=== PATIENT | male | born 1995 | race Caucasian/White ===

== ENCOUNTER 2016-10-17 12:51 | Emergency (ER) | payer OTHER ==
[2016-10-17] MEDS ORDERED: TETRACAINE 0.5% OPHTH SOLN 4ML As Ordered ONE (15:03)
[2016-10-17] MEDS ORDERED: DERMABOND TOPICAL SKIN ADHESIVE As Ordered ONE (15:04)
[2016-10-17] MEDS ORDERED: FLUORESCEIN OPHTH 1 MG STRIP As Ordered ONE (15:04)
--- NOTE | 2016-10-17 15:35 | EDDOCDS ---
Nurse's Notes [facility] Name: Harrison Edmonds Age: 21 yrs Sex: Male : 1995 Arrival Date: 10/17/2016 Time: 12:51 Bed TR8 Private MD: Other - Complete Info On Cds Diagnosis: Laceration without foreign body of left eyelid and periocular area-lower Presentation: 10/17 13:13 Presenting complaint: Patient states: scratches around left eye after scratched by own [facility] dog, medic told him to come in and get it checked out, denies any visual disturbance. Mechanism of Injury: dog scratch. The patient denies any loss of vision. Adult Sepsis Screening: The patient does not have new or worsening altered mentation. Patient's respiratory rate is less than 22. Systolic blood pressure is greater than 100. Patient has a qSOFA score of 0- Negative Sepsis Screen. Suicide/Homicide risk assessment- the patient denies having any suicidal and/or homicidal ideations and does not present with any other emotional, behavioral or mental health complaints. Status: The patient is an active duty hvac service manager. Transition of care: patient was not received from another setting of care. 13:13 Acuity: PUJA Level 4 [facility] 13:13 Method Of Arrival: Walkin/Carried/Asstd [facility] Triage Assessment: 13:16 General: Appears in no apparent distress. Pain: Location: left eye Pain currently is 5 cjh out of 10 on a pain scale. HIV screening NA for this visit Offered previously. EENT: Reports pain around left eye. Respiratory: Airway is patent Respiratory effort is even, unlabored, Respiratory pattern is regular, symmetrical. Derm: Skin is pink, warm & dry. Historical: - Allergies: no known allergies; - Home Meds: 1. none - PMHx: none; - PSHx: Ear Tubes; - Social history: Smoking status: Chewing Tobacco No barriers to communication noted. - Family history: Not pertinent. - : The pt / caregiver states he / she is not on anticoagulants. Home medication list is obtained from the patient. - Exposure Risk Screening:: None identified. Screenin:24 Screening information is obtained from the patient. Fall risk: No risks identified. kr3 Assistance ADL's: requires no assistance with activities of daily living. Abuse/DV Screen: The patient / caregiver reports he/she is: not in a situation that causes fear, pain or injury. Nutritional screening: No deficits noted. Advance Directives: Currently, there is no health care proxy. home support is adequate. Assessment: 15:23 General: Appears in no apparent distress, comfortable, Behavior is appropriate for age, kr3 cooperative. Pain: Location: left eye Pain currently is 5 out of 10 on a pain scale. Neurological: Level of Consciousness is awake, alert. Respiratory: Respiratory effort is even, unlabored. Derm: Skin is normal. Injury Description: Laceration sustained to lateral canthus of left eye is superficial, is bleeding no active bleeding noted. Vital Signs: 12:53 BP 111 / 53 RA Sitting (auto/reg); Pulse 55 RA; Resp 18 S; Temp 97.7(O); Pulse Ox 100% mt4 on R/A; Weight 74.84 kg (R); Height 6 ft. 2 in. (187.96 cm) (R); Pain 6/10; 15:22 BP 134 / 72; Pulse 106; Resp 16; Pulse Ox 100% on R/A; Pain 5/10; kr3 12:53 Body Mass Index 21.18 (74.84 kg, 187.96 cm) mt4 Vitals: 12:53 Log In Time: October 17, 2016 at 12:51. mt4 Visual Acuity: 15:22 ; not done kr3 15:28 Left Eye Visual acuity 20/15, ; Right Eye Visual acuity 20/15, ; Without Lenses; kr3 ED Course: 12:53 Patient visited by Ebony Michelle. mt4 12:53 Other - Complete Info On Cds is Private Physician. mt4 12:53 Patient moved to Waiting mt4 12:55 Patient moved to Pre RCE mt4 13:15 Triage Initiated [facility] 14:38 Patient moved to Triage 3 jf3 15:02 [facility] ar2 15:02 Evelio Sheth MD is Attending Physician. ar2 15:02 Patient visited by Andrew Emerson PA-C. ar2 15:19 Pete [facility] [place] [place] is Referral Physician. ar2 15:24 No IV's were initiated during this patient's visit. No procedures done that require kr3 assistance. 15:25 The patient / caregiver is instructed regarding the plan of care and ED course. Patient kr3 has correct armband on for positive identification. 15:28 [facility] Payment Agreement was scanned into [employer] and attached to record. gjb 15:31 Patient moved to [address] 15:32 Patient name changed from Harrison\S\D\S\Grey\S\ to Harrison\S\ \S\Grey. EDMS Administered Medications: 15:05 Drug: Fluorescein 1 strips [fluorescein 1 mg eye strips (1 strips)] {Note: by carter REYES} Route: Ophthalmic; Site: left eye; 15:06 Drug: Tetracaine (PF) 2 drps [tetracaine HCl (PF) 0.5 % eye drops (2 drps)] {Note: by carter REYES} Route: Ophthalmic; Site: left eye; Order Results: There are currently no results for this order. Outcome: 15:20 Discharge ordered by Provider. ar2 15:24 No special radiology studies were completed. Property sent home with patient. kr3 15:30 Discharge Assessment: patient administered narcotics - no. The following High Risk [facility] Discharge criteria are identified: None. Discharged to home ambulatory. Condition: stable. Discharge instructions given to patient, Instructed on discharge instructions, follow up and referral plans. medication usage, wound care, Demonstrated understanding of instructions, medications, Pt was receptive of discharge instructions/ teaching. Prescriptions given X 1. 15:35 Patient left the ED. kr3 Signatures: Dispatcher [employer] EDMS Josiane Wills,LOYD RN kr3 Andrew Emerson, PA-C PA-C ar2 Ebony Michelle ct4 Margot Bautista RN RN [facility] Kelly Rhodes Justin,LOYD RN jojo3 Kacie Lara MTDD
--- NOTE | 2016-10-17 15:35 | EDDOCDS ---
Physician Documentation [facility] Name: Harrison Edmonds Age: 21 yrs Sex: Male : 1995 Arrival Date: 10/17/2016 Time: 12:51 Bed TR8 Private MD: Other - Complete Info On Cds Disposition: 10/17/16 15:20 Discharged to Home/Self Care. Impression: Laceration without foreign body of left eyelid and periocular area - lower. - Condition is Stable. - Discharge Instructions: Tissue Adhesive Wound Care. - Prescriptions for Augmentin 875- 125 mg Oral Tablet - take 1 tablet by ORAL route every 12 hours for 10 days; 20 tablet. - Medication Reconciliation, Local Pharmacy Hours form. - Follow up: [facility]; When: 2 - 3 days; Reason: Wound/Symptom Recheck. Follow up: Emergency Department; When: As needed; Reason: Worsening of conditions. - Problem is new. - Symptoms have improved. Historical: - Allergies: no known allergies; - Home Meds: 1. none - PMHx: none; - PSHx: Ear Tubes; - Social history: Smoking status: Chewing Tobacco No barriers to communication noted. - Family history: Not pertinent. - : The pt / caregiver states he / she is not on anticoagulants. Home medication list is obtained from the patient. - Exposure Risk Screening:: None identified. Vital Signs: 10/17 12:53 BP 111 / 53 RA Sitting (auto/reg); Pulse 55 RA; Resp 18 S; Temp 97.7(O); Pulse Ox 100% mt4 on R/A; Weight 74.84 kg / 164.99 lbs (R); Height 6 ft. 2 in. (187.96 cm) (R); Pain 6/10; 15:22 BP 134 / 72; Pulse 106; Resp 16; Pulse Ox 100% on R/A; Pain 5/10; kr3 12:53 Body Mass Index 21.18 (74.84 kg, 187.96 cm) mt4 Visual Acuity: 15:22 ; not done kr3 15:28 Left Eye Visual acuity 20/15, ; Right Eye Visual acuity 20/15, ; Without Lenses; kr3 MDM: 14:59 Tetracaine (PF) Drops 0.5 % 2 drps Ophthalmic once; apply to affected eye ordered. ar2 15:04 Dermabond to bedside ordered. ar2 15:04 Fluorescein Strip 1 strips Ophthalmic once ordered. ar2 15:25 Visual Acuity ordered. ar2 15:28 [facility] Payment Agreement was scanned into [employer] and attached to record. cherri 15:28 Financial registration complete. cherri Administered Medications: 15:05 Drug: Fluorescein 1 strips [fluorescein 1 mg eye strips (1 strips)] {Note: by carter REYES} Route: Ophthalmic; Site: left eye; 15:06 Drug: Tetracaine (PF) 2 drps [tetracaine HCl (PF) 0.5 % eye drops (2 drps)] {Note: by carter REYES} Route: Ophthalmic; Site: left eye; Signatures: Josiane Wills RN RN kr3 Andrew Emerson PA-C PAElvia ar2 Margot Bautista RN RN cj Kacie Lara The chart was reviewed and I authenticate all verbal orders and agree with the evaluation and treatment provided.Attachments: 15:28 [facility] Payment Agreement nat MTDD
--- NOTE | 2016-10-19 16:35 | EDDOCDS ---
Nurse's Notes [facility] Name: Harrison Edmonds Age: 21 yrs Sex: Male : 1995 Arrival Date: 10/17/2016 Time: 12:51 Bed TR8 Private MD: Other - Complete Info On Cds Diagnosis: Laceration without foreign body of left eyelid and periocular area-lower Presentation: 10/17 13:13 Presenting complaint: Patient states: scratches around left eye after scratched by own [facility] dog, medic told him to come in and get it checked out, denies any visual disturbance. Mechanism of Injury: dog scratch. The patient denies any loss of vision. Adult Sepsis Screening: The patient does not have new or worsening altered mentation. Patient's respiratory rate is less than 22. Systolic blood pressure is greater than 100. Patient has a qSOFA score of 0- Negative Sepsis Screen. Suicide/Homicide risk assessment- the patient denies having any suicidal and/or homicidal ideations and does not present with any other emotional, behavioral or mental health complaints. Status: The patient is an active duty human service technician. Transition of care: patient was not received from another setting of care. 13:13 Acuity: PUJA Level 4 [facility] 13:13 Method Of Arrival: Walkin/Carried/Asstd [facility] Triage Assessment: 13:16 General: Appears in no apparent distress. Pain: Location: left eye Pain currently is 5 cjh out of 10 on a pain scale. HIV screening NA for this visit Offered previously. EENT: Reports pain around left eye. Respiratory: Airway is patent Respiratory effort is even, unlabored, Respiratory pattern is regular, symmetrical. Derm: Skin is pink, warm & dry. Historical: - Allergies: no known allergies; - Home Meds: 1. none - PMHx: none; - PSHx: Ear Tubes; - Social history: Smoking status: Chewing Tobacco No barriers to communication noted. - Family history: Not pertinent. - : The pt / caregiver states he / she is not on anticoagulants. Home medication list is obtained from the patient. - Exposure Risk Screening:: None identified. Screenin:24 Screening information is obtained from the patient. Fall risk: No risks identified. kr3 Assistance ADL's: requires no assistance with activities of daily living. Abuse/DV Screen: The patient / caregiver reports he/she is: not in a situation that causes fear, pain or injury. Nutritional screening: No deficits noted. Advance Directives: Currently, there is no health care proxy. home support is adequate. Assessment: 15:23 General: Appears in no apparent distress, comfortable, Behavior is appropriate for age, kr3 cooperative. Pain: Location: left eye Pain currently is 5 out of 10 on a pain scale. Neurological: Level of Consciousness is awake, alert. Respiratory: Respiratory effort is even, unlabored. Derm: Skin is normal. Injury Description: Laceration sustained to lateral canthus of left eye is superficial, is bleeding no active bleeding noted. Vital Signs: 12:53 BP 111 / 53 RA Sitting (auto/reg); Pulse 55 RA; Resp 18 S; Temp 97.7(O); Pulse Ox 100% mt4 on R/A; Weight 74.84 kg (R); Height 6 ft. 2 in. (187.96 cm) (R); Pain 6/10; 15:22 BP 134 / 72; Pulse 106; Resp 16; Pulse Ox 100% on R/A; Pain 5/10; kr3 12:53 Body Mass Index 21.18 (74.84 kg, 187.96 cm) mt4 Vitals: 12:53 Log In Time: October 17, 2016 at 12:51. mt4 Visual Acuity: 15:22 ; not done kr3 15:28 Left Eye Visual acuity 20/15, ; Right Eye Visual acuity 20/15, ; Without Lenses; kr3 ED Course: 12:53 Patient visited by Ebony Michelle. mt4 12:53 Other - Complete Info On Cds is Private Physician. mt4 12:53 Patient moved to Waiting mt4 12:55 Patient moved to Pre RCE mt4 13:15 Triage Initiated [facility] 14:38 Patient moved to Triage 3 jf3 15:02 [facility] ar2 15:02 Evelio Sheth MD is Attending Physician. ar2 15:02 Patient visited by Andrew Emerson PA-C. ar2 15:19 Pete [facility] [place] is Referral Physician. ar2 15:24 No IV's were initiated during this patient's visit. No procedures done that require kr3 assistance. 15:25 The patient / caregiver is instructed regarding the plan of care and ED course. Patient kr3 has correct armband on for positive identification. 15:28 [facility] Payment Agreement was scanned into [employer] and attached to record. gjb 15:31 Patient moved to [address] 15:32 Patient name changed from Harrison\S\D\S\Grey\S\ to Harrison\S\ \S\Grey. EDMS 10/18 17:03 T-Sheet-- Draft Copy was scanned into [employer] and attached to record. klr Administered Medications: 10/17 15:05 Drug: Fluorescein 1 strips [fluorescein 1 mg eye strips (1 strips)] {Note: by carter REYES} Route: Ophthalmic; Site: left eye; 15:06 Drug: Tetracaine (PF) 2 drps [tetracaine HCl (PF) 0.5 % eye drops (2 drps)] {Note: by carter REYES} Route: Ophthalmic; Site: left eye; Order Results: There are currently no results for this order. Outcome: 15:20 Discharge ordered by Provider. ar2 15:24 No special radiology studies were completed. Property sent home with patient. kr3 15:30 Discharge Assessment: patient administered narcotics - no. The following High Risk [facility] Discharge criteria are identified: None. Discharged to home ambulatory. Condition: stable. Discharge instructions given to patient, Instructed on discharge instructions, follow up and referral plans. medication usage, wound care, Demonstrated understanding of instructions, medications, Pt was receptive of discharge instructions/ teaching. Prescriptions given X 1. 15:35 Patient left the ED. kr3 Signatures: Dispatcher [employer] EDAL Josiane WillsRN RN kr3 Andrew Emerson, PA-C PA-C ar2 Ebony Michelle mt4 Margot Bautista RN RN [facility] Carmelo, Kwame Mckenna RN RN jf3 Beck, Gabriela gjb Redder, Kathie klr Chart Complete MTDD
--- NOTE | 2016-10-19 16:35 | EDDOCDS ---
Physician Documentation [facility] Name: Harrison Edmonds Age: 21 yrs Sex: Male : 1995 Arrival Date: 10/17/2016 Time: 12:51 Bed TR8 Private MD: Other - Complete Info On Cds Disposition: 10/17/16 15:20 Discharged to Home/Self Care. Impression: Laceration without foreign body of left eyelid and periocular area - lower. - Condition is Stable. - Discharge Instructions: Tissue Adhesive Wound Care. - Prescriptions for Augmentin 875- 125 mg Oral Tablet - take 1 tablet by ORAL route every 12 hours for 10 days; 20 tablet. - Medication Reconciliation, Local Pharmacy Hours form. - Follow up: [facility]; When: 2 - 3 days; Reason: Wound/Symptom Recheck. Follow up: Emergency Department; When: As needed; Reason: Worsening of conditions. - Problem is new. - Symptoms have improved. Historical: - Allergies: no known allergies; - Home Meds: 1. none - PMHx: none; - PSHx: Ear Tubes; - Social history: Smoking status: Chewing Tobacco No barriers to communication noted. - Family history: Not pertinent. - : The pt / caregiver states he / she is not on anticoagulants. Home medication list is obtained from the patient. - Exposure Risk Screening:: None identified. Vital Signs: 10/17 12:53 BP 111 / 53 RA Sitting (auto/reg); Pulse 55 RA; Resp 18 S; Temp 97.7(O); Pulse Ox 100% mt4 on R/A; Weight 74.84 kg / 164.99 lbs (R); Height 6 ft. 2 in. (187.96 cm) (R); Pain 6/10; 15:22 BP 134 / 72; Pulse 106; Resp 16; Pulse Ox 100% on R/A; Pain 5/10; kr3 12:53 Body Mass Index 21.18 (74.84 kg, 187.96 cm) mt4 Visual Acuity: 15:22 ; not done kr3 15:28 Left Eye Visual acuity 20/15, ; Right Eye Visual acuity 20/15, ; Without Lenses; kr3 MDM: 14:59 Tetracaine (PF) Drops 0.5 % 2 drps Ophthalmic once; apply to affected eye ordered. ar2 15:04 Dermabond to bedside ordered. ar2 15:04 Fluorescein Strip 1 strips Ophthalmic once ordered. ar2 15:25 Visual Acuity ordered. ar2 15:28 [facility] Payment Agreement was scanned into [employer] and attached to record. [facility] 15: Financial registration complete. [facility] 10/18 17:03 T-Sheet-- Draft Copy was scanned into [employer] and attached to record. klr Administered Medications: 10/17 15:05 Drug: Fluorescein 1 strips [fluorescein 1 mg eye strips (1 strips)] {Note: by carter REYES} Route: Ophthalmic; Site: left eye; 15:06 Drug: Tetracaine (PF) 2 drps [tetracaine HCl (PF) 0.5 % eye drops (2 drps)] {Note: by carter REYES} Route: Ophthalmic; Site: left eye; Signatures: Josiane Wills RN RN kr3 Andrew Emerson PA-C PA-C ar2 Margot Bautista RN RN [facility] Kacie Lara [facility] Samantha Toney The chart was reviewed and I authenticate all verbal orders and agree with the evaluation and treatment provided.Attachments: 15:28 [facility] Payment Agreement [facility] 10/18 17:03 T-Sheet-- Draft Copy klr Chart Complete MTDD
--- NOTE | 2016-10-19 16:35 | EDDOCDS ---
Physician Documentation [facility] Name: Harrison Edmonds Age: 21 yrs Sex: Male : 1995 Arrival Date: 10/17/2016 Time: 12:51 Bed TR8 Private MD: Other - Complete Info On Cds Disposition: 10/17/16 15:20 Discharged to Home/Self Care. Impression: Laceration without foreign body of left eyelid and periocular area - lower. - Condition is Stable. - Discharge Instructions: Tissue Adhesive Wound Care. - Prescriptions for Augmentin 875- 125 mg Oral Tablet - take 1 tablet by ORAL route every 12 hours for 10 days; 20 tablet. - Medication Reconciliation, Local Pharmacy Hours form. - Follow up: [facility]; When: 2 - 3 days; Reason: Wound/Symptom Recheck. Follow up: Emergency Department; When: As needed; Reason: Worsening of conditions. - Problem is new. - Symptoms have improved. Historical: - Allergies: no known allergies; - Home Meds: 1. none - PMHx: none; - PSHx: Ear Tubes; - Social history: Smoking status: Chewing Tobacco No barriers to communication noted. - Family history: Not pertinent. - : The pt / caregiver states he / she is not on anticoagulants. Home medication list is obtained from the patient. - Exposure Risk Screening:: None identified. Vital Signs: 10/17 12:53 BP 111 / 53 RA Sitting (auto/reg); Pulse 55 RA; Resp 18 S; Temp 97.7(O); Pulse Ox 100% mt4 on R/A; Weight 74.84 kg / 164.99 lbs (R); Height 6 ft. 2 in. (187.96 cm) (R); Pain 6/10; 15:22 BP 134 / 72; Pulse 106; Resp 16; Pulse Ox 100% on R/A; Pain 5/10; kr3 12:53 Body Mass Index 21.18 (74.84 kg, 187.96 cm) mt4 Visual Acuity: 15:22 ; not done kr3 15:28 Left Eye Visual acuity 20/15, ; Right Eye Visual acuity 20/15, ; Without Lenses; kr3 MDM: 14:59 Tetracaine (PF) Drops 0.5 % 2 drps Ophthalmic once; apply to affected eye ordered. ar2 15:04 Dermabond to bedside ordered. ar2 15:04 Fluorescein Strip 1 strips Ophthalmic once ordered. ar2 15:25 Visual Acuity ordered. ar2 15:28 [facility] Payment Agreement was scanned into [employer] and attached to record. [facility] 15: Financial registration complete. [facility] 10/18 17:03 T-Sheet-- Draft Copy was scanned into [employer] and attached to record. klr Administered Medications: 10/17 15:05 Drug: Fluorescein 1 strips [fluorescein 1 mg eye strips (1 strips)] {Note: by carter REYES} Route: Ophthalmic; Site: left eye; 15:06 Drug: Tetracaine (PF) 2 drps [tetracaine HCl (PF) 0.5 % eye drops (2 drps)] {Note: by carter REYES} Route: Ophthalmic; Site: left eye; Signatures: Josiane Wills RN RN kr3 Andrew Emerson PA-C PA-C ar2 Margot Bautista RN RN [facility] Kacie Lara [facility] Samantha Toney The chart was reviewed and I authenticate all verbal orders and agree with the evaluation and treatment provided.Attachments: 15:28 [facility] Payment Agreement [facility] 10/18 17:03 T-Sheet-- Draft Copy klr Chart Complete MTDD
== END 2016-10-17 15:35 | disposition home or self-care (01) ==
LOC: M ED 12:51
DX: S01.112A Laceration without foreign body of left eyelid and periocular area, initial encounter (principal); W54.8XXA Other contact with dog, initial encounter; Y92.89 Other specified places as the place of occurrence of the external cause; Y93.89 Activity, other specified; Y99.8 Other external cause status; F17.220 Nicotine dependence, chewing tobacco, uncomplicated

== ENCOUNTER 2017-05-17 00:21 | Emergency (ER) | payer OTHER ==
[~2017-05-17] VITALS: Ht 185.4 cm; Wt 75.0 kg
[2017-05-17 00:32] VITALS: BP 115/65
[2017-05-17] MEDS ORDERED: IBUP-1022 PO (01:24)
--- NOTE | 2017-05-17 08:23 | REP ---
Left hand series: Four views. History: Trauma. Findings: Four views of the left hand show some soft tissue swelling over the distal metacarpals. No fracture is evident. No opaque foreign body seen. Impression: Soft-tissue swelling. No fracture seen. Signed by Taiwo Contreras MD 05/17/2017 08:38 A
== END 2017-05-17 01:29 | disposition home or self-care (01) ==
LOC: M ED 00:21
DX: S63.91XA Sprain of unspecified part of right wrist and hand, initial encounter (principal); Z72.0 Tobacco use; W22.8XXA Striking against or struck by other objects, initial encounter; Y92.099 Unspecified place in other non-institutional residence as the place of occurrence of the external cause; Y93.89 Activity, other specified; Y99.9 Unspecified external cause status